=== PATIENT | female | born 1950 | race Caucasian/White ===

== ENCOUNTER 2022-02-20 16:42 | Emergency (ER) | payer OTHER, SELFPAY ==
[2022-02-20 16:43] VITALS: BP 211/71; PULSE 57; RESP 17; TEMP 37.1; O2SAT 97; BMI 27.3
[2022-02-20 17:15] VITALS: BMI 27.3
--- NOTE | 2022-02-20 17:32 | CT_ITS ---
We are attempting to reach an attending provider to discuss findings. An addendum with communication details will be sent when the communication is complete. EXAM: CT ANGIOGRAPHY HEAD AND NECK WITH INTRAVENOUS CONTRAST CLINICAL INDICATION: slurred speech CONFUSION TECHNIQUE: [place] [facility] [place]/head and neck CT angiography protocol performed with intravenous contrast. This CT exam was performed using one or more of the following dose reduction techniques: automated exposure control, adjustment of the mA and/or kV according to patient size, and/or use of iterative reconstruction technique. This report was created using [employer] report generation technology. MIP reconstructed images were created and reviewed. CONTRAST: IV 100mL Isovue-370 RADIATION DOSE: CTDIvol = 29.44 mGy, DLP = 1511.21 mGy-cm COMPARISON: None. FINDINGS: HEAD: RIGHT ANTERIOR CEREBRAL ARTERY: Unremarkable. No significant stenosis at the visualized segments. Anterior communicating artery is present. No aneurysm. RIGHT MIDDLE CEREBRAL ARTERY: Unremarkable. No significant stenosis at the visualized segments. No aneurysm. RIGHT POSTERIOR CEREBRAL ARTERY: Unremarkable. No occlusion or significant stenosis. No aneurysm. RIGHT INTRACRANIAL INTERNAL CAROTID ARTERY: See below. RIGHT INTRACRANIAL VERTEBRAL ARTERY: Unremarkable. No significant stenosis. No dissection or occlusion. LEFT ANTERIOR CEREBRAL ARTERY: Unremarkable. No significant stenosis at the visualized segments. No aneurysm. LEFT MIDDLE CEREBRAL ARTERY: Unremarkable. No significant stenosis at the visualized segments. No aneurysm. LEFT POSTERIOR CEREBRAL ARTERY: Unremarkable. No occlusion or significant stenosis. No aneurysm. LEFT INTRACRANIAL INTERNAL CAROTID ARTERY: See below. LEFT INTRACRANIAL VERTEBRAL ARTERY: Unremarkable. No significant stenosis. No dissection or occlusion. BASILAR ARTERY: Unremarkable. No significant stenosis. No aneurysm. OTHER VASCULATURE: There is mild atherosclerotic plaque formation of the origin of the right internal carotid artery with less than 50% cross sectional diameter stenosis. ALL ABOVE CRITERIA BY NASCET. There is mild atherosclerotic plaque formation of the origin of the left internal carotid artery with less than 50% cross sectional diameter stenosis. ALL ABOVE CRITERIA BY NASCET. There is calcified plaque formation of the right cavernous carotid artery, with a mild stenosis (less than 50%). ALL ABOVE CRITERIA BY NASCET. NECK: RIGHT COMMON CAROTID ARTERY: Unremarkable. No significant stenosis. No dissection or occlusion. RIGHT EXTRACRANIAL INTERNAL CAROTID ARTERY: See above. RIGHT EXTERNAL CAROTID ARTERY: Unremarkable. No occlusion. RIGHT EXTRACRANIAL VERTEBRAL ARTERY: Unremarkable. No significant stenosis. No dissection or occlusion. LEFT COMMON CAROTID ARTERY: Unremarkable. No significant stenosis. No dissection or occlusion. LEFT EXTRACRANIAL INTERNAL CAROTID ARTERY: See above. LEFT EXTERNAL CAROTID ARTERY: Unremarkable. No occlusion. LEFT EXTRACRANIAL VERTEBRAL ARTERY: Unremarkable. No significant stenosis. No dissection or occlusion. GREAT VESSELS OF AORTIC ARCH: There is calcified plaque formation of the left cavernous carotid artery, with a mild stenosis (less than 50%). ALL ABOVE CRITERIA BY NASCET. LUNG APICES: Unremarkable as visualized. HEAD and NECK: BONES/JOINTS: There are degenerative findings of the cervical spine. No discrete lytic or blastic abnormalities. SOFT TISSUES: Unremarkable. OTHER FINDINGS: There is a right thalamic hemorrhage. This appears acute and measures 10 mm. Series 2 image 22. CAROTID STENOSIS REFERENCE USING NASCET CRITERIA: % ICA stenosis = (1 - narrowest ICA diameter/diameter of distal cervical ICA) x 100. Mild - <50% stenosis. Moderate - 50-69% stenosis. Severe - 70-94% stenosis. Near occlusion - 95-99% stenosis. Occluded - 100% stenosis. CT/CTA Head AND Neck W/ Contrast IMPRESSION: 1. There is a right thalamic hemorrhage. This appears acute and measures 10 mm. Series 2 image 22. 2. There is mild atherosclerotic plaque formation of the origin of the right internal carotid artery with less than 50% cross sectional diameter stenosis. ALL ABOVE CRITERIA BY NASCET. 3. There is mild atherosclerotic plaque formation of the origin of the left internal carotid artery with less than 50% cross sectional diameter stenosis. ALL ABOVE CRITERIA BY NASCET. 4. There is calcified plaque formation of the right cavernous carotid artery, with a mild stenosis (less than 50%). ALL ABOVE CRITERIA BY NASCET. 5. There is calcified plaque formation of the left cavernous carotid artery, with a mild stenosis (less than 50%). ALL ABOVE CRITERIA BY NASCET. Electronically Signed: Michael Shoemaker MD at 19:46 EDT ,
--- NOTE | 2022-02-20 17:32 | EKG12_ITS ---
Test Reason : NEURO SX Blood Pressure : / mmHG Vent. Rate : 055 BPM Atrial Rate : 098 BPM P-R Int : 000 ms QRS Dur : 090 ms QT Int : 456 ms P-R-T Axes : 055 012 037 degrees QTc Int : 436 ms Sinus rhythm with 2nd degree A-V block (Mobitz I) with 2:1 A-V conduction Nonspecific ST and T wave abnormality Abnormal ECG Confirmed by CARMINE BYRNES, JESSY ([id number]), web content editor BETINA JOSHI ([id number]) on 02/23/2022 9:46:59 AM Referred By: PC Confirmed By:JESSY LOU MD
--- NOTE | 2022-02-20 17:34 | EDS_ITS ---
HPI History of Present Illness Chief Complaint: Neuro S/Sx Narrative Narrative: Patient presents with an episode that lasted about 2 hours or so where she had slurred speech, she was somewhat confused and apparently she was off balance, she was walking in the middle of the road and did not know that she was in the middle of the road. This seems to have resolved, she remembers only part of this. This was witnessed by family members. She has a history of hypertension but no other medical problems [facility] Medical History (Updated 02/20/22 @ 20:[address] Wilfrido Ohara MD) HTN (hypertension) Home Medications diltiazem HCl 180 mg capsule,extended release 24 hr, controlled 180 mg PO DAILY 02/20/22 [History Last Taken Unknown] lisinopril 40 mg tablet 40 mg PO DAILY 02/20/22 [History Last Taken Unknown] sertraline 100 mg tablet 100 mg PO DAILY 02/20/22 [History Last Taken Unknown] Allergy/AdvReac Type Severity Reaction Status Date / Time No Known Allergies Allergy Verified 02/20/22 16:49 Social History Smoking Status: Never smoker ROS ROS ED ROS Narrative Past medical history: Reviewed, hypertension Medications: Reviewed Social history: Noncontributory Review of systems: All systems negative except as indicated General: No fever Eyes: No visual changes ENT: No upper airway congestion, normal voice Neck: No neck pain Cardiovascular: No chest pain Respiratory: No shortness of breath or cough Gastrointestinal: No abdominal pain, nausea vomiting or diarrhea Genitourinary: No dysuria Musculoskeletal: Denies myalgias no difficulty with ambulation Skin: No rash Neurological: As in HPI Psych: No recent behavioral changes Hematologic: No easy bleeding or easy bruising EXAM Physical Exam Narrative Exam Narrative: Physical exam General: Well nourished, Well developed, No Acute Distress Head: Normocephalic, Atraumatic Eyes: Conjunctiva not pale ENT: Moist mucous membranes Neck: Supple, Nontender, No lymphadenopathy Cardiovascular: Regular rate, Regular rhythm Respiratory: No distress, CTA bilaterally Abdomen: Soft, Nontender, Nondistended Back: Nontender, Normal Inspection. Negative for: CVA tenderness Extremities: Nontender, No edema Skin: Normal color, No rash Neurological: Alert, Normal Strength, Normal Sensation. NIH stroke scale is 0 Psychological: Normal affect Const Vital Signs: 02/20/22 16:43 02/20/22 18:00 02/20/22 18:00 Temperature 98.7 F Temperature Source Temporal Pulse Rate 57 L 49 L Respiratory Rate 17 15 Blood Pressure 211/71 H 174/71 H Blood Pressure Mean 117 105 Pulse Ox 97 96 Oxygen Delivery Method Room Air Room Air Room Air 02/20/22 19:20 02/20/22 20:20 Temperature Temperature Source Pulse Rate 54 L 55 L Respiratory Rate 18 18 Blood Pressure 164/68 H 159/66 H Blood Pressure Mean 100 97 Pulse Ox 96 94 Oxygen Delivery Method Room Air Room Air MDM MDM MDM Narrative Medical decision making narrative: Patient is found to have a thalamic bleed. This is about 10 mm without complication she was initially slightly hypertensive a mostly improved on its own but we will try to keep it below 160 with labetalol. I talked to her about transport to [place], she chooses to go to [place]. Talk to [facility] and patient was admitted. I am unsure about the etiology of her bleed, it is likely spontaneous since there is no history of trauma there is no evidence of aneurysm and based on her relatively normal blood pressures at home believe this is a hypertensive bleed. Regardless she will be admitted to the neuro ICU. Lab Data Labs: Laboratory Results - last 24 hr 02/20/22 02/20/22 02/20/22 17:00 17:00 17:00 WBC 11.2 H RBC 4.95 Hgb 14.2 Hct 43.4 MCV 87.7 MCH 28.7 MCHC 32.7 RDW Std Deviation 40.2 RDW Coeff of Pey[place] 12.8 Plt Count 261 MPV 9.7 Immature Gran % (Auto) 0.400 Neut % (Auto) 67.7 Lymph % (Auto) 19.6 [place] % (Auto) 11.8 H Eos % (Auto) 0.2 Baso % (Auto) 0.3 Absolute Neuts (auto) 7.6 Absolute Lymphs (auto) 2.20 Nucleated RBC % 0 PT 13.4 INR 1.1 APTT 29.9 Sodium 139 Potassium 3.7 Chloride 102 Carbon Dioxide 28.0 Anion Gap 9 BUN 20 H Creatinine 1.08 H Estim Creat Clear Calc 37.79 Est GFR (MDRD) Af Amer 64 Est GFR (MDRD) Non-Af 53 L BUN/Creatinine Ratio 18.5 Glucose 120 H Calcium 9.7 Troponin I High Sens 33 Radiography Diagnostic Testing: Clinical Impression(s) from Imaging Studies Head/Neck CTA 02/20/22 17:32 IMPRESSION: 1. There is a right thalamic hemorrhage. This appears acute and measures 10 mm. Series 2 image 22. 2. There is mild atherosclerotic plaque formation of the origin of the right internal carotid artery with less than 50% cross sectional diameter stenosis. ALL ABOVE CRITERIA BY NASCET. 3. There is mild atherosclerotic plaque formation of the origin of the left internal carotid artery with less than 50% cross sectional diameter stenosis. ALL ABOVE CRITERIA BY NASCET. 4. There is calcified plaque formation of the right cavernous carotid artery, with a mild stenosis (less than 50%). ALL ABOVE CRITERIA BY NASCET. 5. There is calcified plaque formation of the left cavernous carotid artery, with a mild stenosis (less than 50%). ALL ABOVE CRITERIA BY NASCET. Electronically Signed: Michael Shoemaker MD at 19:46 EDT , ADDENDUM: 02/20/221999 IMPRESSION: 1. There is a right thalamic hemorrhage. This appears acute and measures 10 mm. Series 2 image 22. 2. There is mild atherosclerotic plaque formation of the origin of the right internal carotid artery with less than 50% cross sectional diameter stenosis. ALL ABOVE CRITERIA BY NASCET. 3. There is mild atherosclerotic plaque formation of the origin of the left internal carotid artery with less than 50% cross sectional diameter stenosis. ALL ABOVE CRITERIA BY NASCET. 4. There is calcified plaque formation of the right cavernous carotid artery, with a mild stenosis (less than 50%). ALL ABOVE CRITERIA BY NASCET. 5. There is calcified plaque formation of the left cavernous carotid artery, with a mild stenosis (less than 50%). ALL ABOVE CRITERIA BY NASCET. N.B. : The above Results were Read Back by Michael Shoemaker MD to Wilfrido Ohara MD, and understanding confirmed on 02/20/2022 19:53:31 (ET). Electronically Signed: Michael Shoemaker MD at 19:46 EDT , Chest X-Ray 02/20/22 18:38 IMPRESSION: There is borderline cardiac size. No pulmonary edema, congestive heart failure or confluent pneumonia. Electronically Signed: Stacie Covington MD at 19:16 EDT Reading Location ID and State: , Service support , Critical Care Time Critical Care Time: Yes Critical care time (excluding procedures): 30-74 minutes and - (Critical care time is 35 minutes. Patient has an intracranial hemorrhage, blood pressure control is important, I discussed with consultants, I documented and spent 10 discussed this with the family and the patient.) Discharge Plan Triage Chief Complaint: Neuro S/Sx ED Provider: Wilfrido Ohara Dx/Rx/DC Orders Clinical Impression: Intracranial bleed, Hypertension, Stroke-like symptom Prescriptions: No Action sertraline 100 mg Tablet 100 mg PO DAILY lisinopril 40 mg Tablet 40 mg PO DAILY diltiazem HCl 180 mg Capsule,Ext.Rel 24h Degradable 180 mg PO DAILY Primary Care Provider: Marycarmen Dan Referrals: Marycarmen Dan DO [Primary Care Provider] - Disposition Disposition: DC/Tx to Another Type of HCF
[2022-02-20 17:51] LABS: Absolute Neutrophil Count 7.6 X10^3/uL (2.0-7.7); Basophil# 0.03 X10^3/uL; Basophil% 0.3 % (0-1); Eosinophil# 0.02 X10^3/uL; Eosinophils% 0.2 % (0-5); Hematocrit 43.4 % (37-47); Hemoglobin 14.2 g/dL (12.0-15.0); Lymphocyte % 19.6 % (19-41); Mean Corp Hgb Conc 32.7 g/dL (32-36); Mean Corpuscular Hgb 28.7 pg (27.0-32.0); Mean Corpuscular Volume 87.7 fL (81-99); Mean Platelet Vol. 9.7 fl (6.2-12.0); Monocyte# 1.32 X10^3/uL; Monocyte% 11.8 % (0-10); NRBC Flagged by Analyzer 0 % (0-5); Neutrophil # 7.62 X10^3/uL (2.7-7.7); Neutrophil % 67.7 % (47-70); Platelet Count 261 K/mm3 (150-450); RBC Distribution Width CV 12.8 % (11.6-14.6); RBC Distribution Width SD 40.2 fl (35.1-43.9); Red Blood Count 4.95 M/mm3 (4.2-5.4); White Blood Count 11.2 K/mm3 (4.4-11.0)
[2022-02-20 17:58] LABS: International Normalized Ratio 1.1; Partial Thromboplast Time 29.9 Seconds (24.1-36.2); Prothrombin Time (Protime)PT. 13.4 SECONDS (11.7-14.9)
[2022-02-20 18:00] VITALS: BP 174/71; PULSE 49; RESP 15; O2SAT 96
--- NOTE | 2022-02-20 18:10 | ED.RN ---
[facility] CANCELED PER DR RODRIGUEZ
[2022-02-20 18:23] LABS: Anion Gap 9 (5-15); BUN 20 mg/dL (7-18); BUN/Creat Ratio 18.5 RATIO (10-20); Calcium,Total 9.7 mg/dL (8.5-10.1); Chloride 102 mmol/L (98-107); Creatinine, Serum 1.08 mg/dL (0.55-1.02); EST Glomerular Filtration Rate 53 mL/min (>60); Est Glom Filt Rate - Afr Amer 64 mL/min (>60); Estimated Creatinine Clearance 37.79 ml/min; Glucose 120 mg/dL (74-106); Potassium 3.7 mmol/L (3.5-5.1); Sodium Level 139 mmol/L (136-145); Troponin-I HS 33 pg/mL (3.0-54.0)
--- NOTE | 2022-02-20 18:38 | RAD_ITS ---
STUDY: X-RAY CHEST REASON FOR EXAM: Female, 71 years old. Neuro deficit, acute, stroke suspected TECHNIQUE: Single AP portable view of the chest. COMPARISON: None. FINDINGS: There are superimposed monitor leads. Mild elevation right hemidiaphragm. The lungs are clear and expanded. There is no demonstrated pleural abnormality. There is borderline cardiomegaly. Normal mediastinum and margarita. Normal visualized pulmonary arteries. There is atherosclerotic calcification of the aortic arch with tortuosity. Calcification of valves. There are diffuse degenerative changes of the visualized thoracic spine. There is degenerative osteoarthritis of the bilateral shoulders. There is no demonstrated abnormality of the visualized soft tissue structures of the upper abdomen. RAD/Chest 1 View IMPRESSION: There is borderline cardiac size. No pulmonary edema, congestive heart failure or confluent pneumonia. Electronically Signed: Stacie Covington MD at 19:16 EDT Reading Location ID and State: , Service support ,
[2022-02-20 19:20] VITALS: BP 164/68; PULSE 54; RESP 18; O2SAT 96
[2022-02-20 20:20] VITALS: BP 159/66; PULSE 55; RESP 18; O2SAT 94
[2022-02-20] MEDS: Labetalol (Prefilled) 20 MG/4 ML 5 MG IV (21:14)
[2022-02-20 21:17] VITALS: BP 174/74; PULSE 62; RESP 18; O2SAT 95
== END 2022-02-20 21:18 | disposition short-term general hospital (02) ==
PROVIDERS: Emergency Provider Emergency Medicine; PCP Family Medicine; Visit Provider Emergency Medicine
DX: I61.8 Other nontraumatic intracerebral hemorrhage (principal); I10 Essential (primary) hypertension; Z79.899 Other long term (current) drug therapy
CPT/HCPCS: 70496; 70498; 71045; 80048; 84484; 85025; 85610; 85730; 93005; 96374; 99284; Q9967; A4216